=== PATIENT | female | born 1980 | race Caucasian/White ===

== ENCOUNTER 2019-08-03 23:50 | Inpatient (IN) ==
[2019-08-04 00:19] LABS: Basophils # 0.1 K/mcL (0.0-0.2); Basophils % 0.5 %; Eosinophils # 0.2 K/mcL (0.0-0.6); Eosinophils % 1.2 %; Hematocrit 44.8 % (35.3-44.9); Hemoglobin 14.2 g/dL (11.5-15.4); Immature Granulocytes % 0.4 % (0-4); Lymphocytes # 5.1 K/mcL (0.6-4.6); Lymphocytes % 33.1 %; Mean Corpuscular HGB Conc 31.7 g/dL (31.6-35.5); Mean Corpuscular Hemoglobin 31.3 pg (28.0-33.3); Mean Corpuscular Volume 98.9 fL (83.0-100.0); Mean Platelet Volume 9.8 fL (9.4-12.4); Monocytes # 0.6 K/mcL (0.0-1.3); Monocytes % 3.9 %; Neutrophils # 9.4 K/mcL (1.6-8.9); Platelet Count 471 K/mcL (140-400); Red Blood Count 4.53 M/mcL (3.82-4.97); Red Cell Distribution Width 13.1 % (11.5-14.5); Segmented Neutrophils % 60.9 %; White Blood Count 15.5 K/mcL (4.3-11.1)
[2019-08-04 00:19] LABS: Bilirubin,Urine Negative (Negative); Blood,Urine Negative (Negative); Clarity,Urine Clear (Clear); Color,Urine Yellow (Yellow); Glucose,Urine (UA) Normal (Normal); Ketones,Urine Negative (Negative); Leukocyte Esterase,Urine Negative (Negative); Nitrite,Urine Negative (Negative); PH,Urine 6.5 pH Units (5.0-8.0); Protein,Urine Negative (Neg-Trace); Specific Gravity,Urine 1.017 (1.010-1.025); Urobilinogen,Urine Normal (Normal)
[2019-08-04 00:30] LABS: Amphetamine Screen,Urine Negative ng/mL (Cutoff=1000); Barbiturate Screen,Urine Negative ng/mL (Cutoff=200); Benzodiazepines Screen,Urine Negative ng/mL (Cutoff=200); Cannabinoid Screen,Urine Positive ng/mL (Cutoff = 50); Cocaine Screen,Urine Negative ng/mL (Cutoff= 300); Opiate Screen,Urine Negative ng/mL (Cutoff=300); Phencyclidine Screen,Urine Negative ng/mL (Cutoff=25)
[2019-08-04 00:34] LABS: Acetaminophen < 10 mcg/mL (10-20); BUN/Creatinine Ratio 9 (6-26); Blood Urea Nitrogen 7 mg/dL (6-20); Calcium 9.2 mg/dL (8.6-10.3); Carbon Dioxide 26 mEq/L (23-29); Chloride 107 mEq/L (98-107); Ethanol 121 mg/dL (Less than 10); Glucose 116 mg/dL (70-105); Osmolality,Calculated 291 (280-300); Potassium 3.6 mEq/L (3.5-5.1); Salicylate < 2.5 mg/dL (15.0-30.0); Sodium 141 mEq/L (136-145); eGFR For African Americans > 60 (> 60); eGFR For Non-African Americans > 60 (> 60)
[2019-08-04] MEDS ORDERED: *HR* LORazepam 1 MG TABLET PO PRN (05:18)
[2019-08-04] MEDS ORDERED: Haloperidol Lactate 5 MG/ML VIAL IM PRN (05:18)
[2019-08-04] MEDS ORDERED: *HR* LORazepam 2 MG/ML VIAL IM PRN (05:18)
[2019-08-04] MEDS ORDERED: hydrOXYzine pamoate 25 MG CAPSULE PO PRN (05:18)
[2019-08-04] MEDS ORDERED: traZODone 50 MG TABLET PO PRN (05:18)
[2019-08-04] MEDS ORDERED: Mag Hydrox/Al Hydrox/Simeth 30 ML UDC PO PRN (05:18)
[2019-08-04] MEDS ORDERED: MOM Conc 10 ML UD.LIQ PO PRN (05:18)
[2019-08-04] MEDS ORDERED: haloperidoL 5 MG TABLET PO PRN (05:18)
[2019-08-04] MEDS ORDERED: Td (TENIVAC) Vaccine 0.5 ML VIAL IM ONE (10:52)
[2019-08-04] MEDS: Nicotine 21 MG PATCH.TD24 TD SCH (12:01)
[2019-08-04 12:07] LABS: Thyroid Stimulating Hormone 1.204 mcIU/mL (0.340-5.600)
[2019-08-04 19:53] VITALS: BP 126/85
[2019-08-04] MEDS ORDERED: Lithium Carbonate 300 MG CAPSULE PO SCH (21:00)
[2019-08-04] MEDS ORDERED: traZODone 50 MG TABLET PO SCH (21:00)
[2019-08-04] MEDS: Acetaminophen 325 MG TABLET PO PRN (21:35)
[2019-08-05] MEDS: Acetaminophen 325 MG TABLET PO PRN (08:50)
[2019-08-05] MEDS: Nicotine 21 MG PATCH.TD24 TD SCH (08:50)
== END 2019-08-05 10:30 | disposition home or self-care (01) | DRG 753 ==
LOC: EMEROOARM 23:50 → 1ANU 08-04 05:16
PROVIDERS: ADMIT Psychiatry & Neurology Psychiatry; ATTEND Psychiatry & Neurology Psychiatry